=== PATIENT | male | born 1975 | race Caucasian/White ===

== ENCOUNTER 2017-01-02 22:26 | Inpatient (IN) ==
[2017-01-02] MEDS ORDERED: *HR* Ticagrelor 90 MG TABLET PO ONE (22:56)
[2017-01-02] MEDS ORDERED: Aspirin 81 MG TAB.CHEW PO ONE (22:56)
[2017-01-02] MEDS ORDERED: *HR* Heparin 5,000 UNIT/ML VIAL IVP ONE (22:56)
[2017-01-02] MEDS ORDERED: *HR* Heparin 5,000 UNIT/ML VIAL IVP PRN ×2 (22:56)
[2017-01-02] MEDS ORDERED: Heparin 25,000 UNIT/500 ML D5W 25,000 UNIT/500 ML MLS IVC SCH (23:00)
[2017-01-02] MEDS ORDERED: Aspirin 81 MG TAB.CHEW ONE (23:01)
[2017-01-02] MEDS ORDERED: *HR* Ticagrelor 90 MG TABLET ONE (23:01)
[2017-01-02] MEDS ORDERED: *HR* Heparin 5,000 UNIT/ML VIAL ONE (23:01)
[2017-01-02] MEDS ORDERED: 0.9 % Sodium Chloride 1,000 ML ONE ×2 (23:01→23:21)
--- NOTE | 2017-01-02 23:01 | Emergency Department Note ---
Disposition Clinical Impression: ST elevation myocardial infarction (STEMI) Qualifiers: Involved coronary artery: other inferior wall coronary artery Qualified Code(s) : I21.19 - ST elevation (STEMI) myocardial infarction involving other coronary artery of inferior wall Disposition: Admitted As Inpatient Condition: Serious Forms: ED Satisfaction Letter Chest Pain HPI - General Chief Complaint: ED Chest Pain Stated Complaint: CP INTO NECK Time Seen by Provider: 01/02/17 22:56 Source: patient, family Mode of arrival: private vehicle Limitations: no limitations Vital Signs Reviewed: Yes Nursing Notes Reviewed: Yes - History of Present Illness HPI Narrative: 41-year-old male history of hypertension who presents to the ER with a chief complaint of chest pain. Patient reports that he was recently hospitalized at another facility where he had troponins measured serially and was discharged. They report that they were normal. No stress test or Cardiac catheterization at that time. He reports that he has continued to have pain but it worsened today. He describes pain that radiates into his left neck and jaw. He is also felt short of breath and diaphoretic. No history of cardiac disease, stents or heart catheterization in the past. No other complaints. Pt complaint: chest pain Onset (ago): day(s) Duration: intermittent Onset: during rest Pain Location: left chest Severity: moderate Severity scale (1-10): 3 Quality: heaviness Pain Radiation: neck, jaw/teeth Improves with: nothing Worsens with: exertion Associated symptoms: Reports: nausea, diaphoresis, dyspnea. Denies: vomiting Treatments prior to arrival chest pain: none - Related Data On Oral Contraceptives: No Allergies Allergy/AdvReac Type Severity Reaction Status Date / Time No Known Allergies Allergy Verified 01/02/17 22:45 All systems ED: reviewed and negative except as stated. Constitutional: Denies: fever Cardiovascular: Reports: chest pain, dyspnea on exertion Respiratory: Reports: dyspnea. Denies: cough Gastrointestinal: Reports: nausea. Denies: abdominal pain, vomiting Musculoskeletal: Reports: neck pain Chest Pain PMH - Past Medical History Medical history: Reports: no medical history - Social History Smoking Status: Never smoker Alcohol use: Reports: none Drug use: Reports: none Physical Exam - General Limitations: no limitations General appearance: alert, in no apparent distress - Head Head exam: atraumatic, normocephalic, normal inspection - Eye Eye exam: Present: normal appearance, EOMI - ENT ENT exam: normal exam - Neck Neck exam: Present: normal inspection - Chest Chest inspection: Present: normal inspection, symmetric chest wall rise - Cardiovascular Cardiovascular exam: Present: regular rate, normal rhythm, normal heart sounds - Abdominal Exam Abdominal exam: Present: soft, Non-Tender. Absent: tenderness - Extremities Exam Extremities exam: Present: normal inspection, full ROM - Expanded Upper Extremity Exam Shoulder exam: Present: normal inspection, full ROM Arm exam: Present: normal inspection, full ROM Elbow exam: Present: normal inspection, full ROM Forearm/Wrist exam: Present: normal inspection, full ROM Hand exam: Present: normal inspection, full ROM Vascular exam: Normal: radial pulse - Expanded Lower Extremity Exam Hip/Pelvis exam: Present: normal inspection, full ROM Upper leg exam: Present: normal inspection, full ROM Knee exam: Present: normal inspection, full ROM Lower leg exam: Present: normal inspection, full ROM Ankle exam: Present: normal inspection, full ROM Foot/toe exam: Present: normal inspection, full ROM Neurovascular/Tendon exam: Absent: motor deficit, sensory deficit - Neurological Exam Neurological exam: Present: alert - Psychiatric Psychiatric exam: Present: normal affect, normal mood - Skin Skin exam: Present: warm, dry, intact, normal color Course Course Narrative: Patient seen and examined. Vital signs reviewed. STEMI alert was called upon evaluation of his EKG. supervisor [facility] pool has been contacted and will be in to see the patient. We will load him with Brilinta as well as heparin. Vital Signs Temperature 98.0 F 01/02/17 22:42 Pulse Rate 97 01/02/17 22:42 Respiratory Rate 18 01/02/17 22:42 Blood Pressure 151/99 01/02/17 22:42 O2 Sat by Pulse Oximetry 95 01/02/17 22:42 Temperature 98.0 F 01/02/17 22:42 Pulse Rate 93 01/02/17 23:32 Respiratory Rate 18 01/02/17 23:32 Blood Pressure 149/108 01/02/17 23:32 O2 Sat by Pulse Oximetry 97 01/02/17 23:32 Oxygen Delivery Oxygen Delivery Nasal Cannula Chest Pain - MDM Narrative Medical decision making narrative: 41-year-old male presents to the ER due to chest pain. Upon arrival he was made a STEmI alert his findings in the inferior leads. Pain has been going on for a few days. He had a recent hospitalization with negative troponins. Interventional cardiology was contacted and will be in to see the patient. His troponin came back at 2. Patient will go to [facility] for further management. Hemodynamically stable in the emergency department. - Lab Data Lab results reviewed: Yes I reviewed the patient's lab results. Result diagrams: 01/02/17 22:55 01/02/17 22:55 Lab Results 01/02/17 01/02/17 01/02/17 Range/Units 22:55 22:55 22:55 WBC 12.8 H (4.3-11.1) K/mcL RBC 5.21 (4.19-5.50) M/mcL Hgb 16.1 (12.9-16.9) g/dL Hct 47.5 (37.5-50.1) % MCV 91.2 (83.0-100.0) fL MCH 30.9 (28.0-33.3) pg MCHC 33.9 (31.6-35.5) g/dL RDW 12.2 (11.5-14.5) % Plt Count 235 (140-400) K/mcL MPV 10.9 (9.4-12.4) fL Immature Gran % 0.5 (0-4) % Seg Neutrophils % 64.1 % Lymphocytes % 21.5 % Monocytes % 8.2 % Eosinophils % 5.2 % Basophils % 0.5 % Neutrophils # 8.2 (1.6-8.9) K/mcL Lymphocytes # 2.8 (0.6-4.6) K/mcL Monocytes # 1.1 (0.0-1.3) K/mcL Eosinophils # 0.7 H (0.0-0.6) K/mcL Basophils # 0.1 (0.0-0.2) K/mcL PT 10.0 (9.4-12.1) Seconds INR 0.9 APTT 25.3 L (26.0-36.0) Seconds Sodium 140 (136-145) mEq/L Potassium 3.9 (3.5-4.5) mEq/L Chloride 104 (98-109) mEq/L Carbon Dioxide 25 (19-29) mEq/L BUN 19 (8-26) mg/dL Creatinine 1.32 H (0.72-1.25) mg/dL Est GFR ( Amer) > 60 (> 60) Est GFR (Non-Af Amer) 60 (> 60) BUN/Creatinine Ratio 14 (6-26) Glucose 116 H (70-99) mg/dL Calculated Osmolality 293 (280-300) Calcium 9.5 (8.6-10.8) mg/dL Magnesium 2.2 (1.6-2.6) mg/dL Troponin I (0-0.03) ng/mL 01/02/17 Range/Units 22:55 WBC (4.3-11.1) K/mcL RBC (4.19-5.50) M/mcL Hgb (12.9-16.9) g/dL Hct (37.5-50.1) % MCV (83.0-100.0) fL MCH (28.0-33.3) pg MCHC (31.6-35.5) g/dL RDW (11.5-14.5) % Plt Count (140-400) K/mcL MPV (9.4-12.4) fL Immature Gran % (0-4) % Seg Neutrophils % % Lymphocytes % % Monocytes % % Eosinophils % % Basophils % % Neutrophils # (1.6-8.9) K/mcL Lymphocytes # (0.6-4.6) K/mcL Monocytes # (0.0-1.3) K/mcL Eosinophils # (0.0-0.6) K/mcL Basophils # (0.0-0.2) K/mcL PT (9.4-12.1) Seconds INR APTT (26.0-36.0) Seconds Sodium (136-145) mEq/L Potassium (3.5-4.5) mEq/L Chloride (98-109) mEq/L Carbon Dioxide (19-29) mEq/L BUN (8-26) mg/dL Creatinine (0.72-1.25) mg/dL Est GFR ( Amer) (> 60) Est GFR (Non-Af Amer) (> 60) BUN/Creatinine Ratio (6-26) Glucose (70-99) mg/dL Calculated Osmolality (280-300) Calcium (8.6-10.8) mg/dL Magnesium (1.6-2.6) mg/dL Troponin I 2.01 H* (0-0.03) ng/mL - EKG Data EKG attestation: Yes I reviewed and interpreted this EKG. EKG results narrative: EKG demonstrates sinus rhythm with a rate of 85 bpm. Normal axis. VT interval 110 QRS duration 110 QTc 387 they are 1 mm elevations in leads 3 and aVF without discernible reciprocal changes. No ST depressions. No previous EKG for comparison. Heart Score - Score History: Moderately Suspicious EKG: Significant ST-Depression Age: Less than 45 Risk Factors: 1-2 risk factors Troponin: Greater than 3x normal limit HEART Score Total: 6 Critical Care Time Critical Care Time: Yes Total Critical Care Time: 35 Attestation: Critical care performed: Time is exclusive of separately billable procedures. Time includes: direct patient care, patient reassessment, coordination of patient care, interpretation of data (laboratory data, radiology data, and respiratory data), review of patient's medical records, medical consultation and documentation of patient care. Procedures included in critical care time: Procedures excluded from critical care time: Attestation Statement - Attestation Attestation: I, Isac Sears MD, personally evaluated this patient and discussed their management with the resident physician. I reviewed the resident's note and agree with the documented findings, medical decision making, and plan of care. 41-year-old male presents to the emergency department with a complaint of pain in the left side of the neck radiating up into the left jaw and down into the left chest. This pain started 4 days ago and is been intermittent since onset. He was seen at another facility 3 days ago and admitted overnight for serial troponins which were apparently negative. He was discharged from there 2 days ago and reports they really did not tell them anything. He was not started on aspirin. He has no prior cardiac history. He states that the pain has continued after being discharged from the hospital and got worse today. He states he just tried to ignore it but the pain persisted. He has had some intermittent diaphoresis. Some mild intermittent shortness of breath but has a history of asthma. On examination patient is a well-developed well-nourished male in no acute distress. He is alert and oriented 3. There is no cyanosis or diaphoresis. Chest is nontender to palpation. Breath sounds are clear and equal bilaterally. Heart regular rate and rhythm. Abdomen soft and nontender with normal bowel sounds. Pedal edema. EKG shows an acute inferior STEMI with about [address] elevation in leads 3 and aVF. There is mild elevation in lead 2. He also has Q waves. Troponin 2.01. A STEMI alert was called immediately upon reviewing the EKG. Patient received aspirin and Brilinta and heparin. He was taken directly from the emergency department to the cardiac catheter lab.
[2017-01-02 23:05] LABS: Basophils # 0.1 K/mcL (0.0-0.2); Basophils % 0.5 %; Eosinophils # 0.7 K/mcL (0.0-0.6); Eosinophils % 5.2 %; Hematocrit 47.5 % (37.5-50.1); Hemoglobin 16.1 g/dL (12.9-16.9); Immature Granulocytes % 0.5 % (0-4); Lymphocytes # 2.8 K/mcL (0.6-4.6); Lymphocytes % 21.5 %; Mean Corpuscular HGB Conc 33.9 g/dL (31.6-35.5); Mean Corpuscular Hemoglobin 30.9 pg (28.0-33.3); Mean Corpuscular Volume 91.2 fL (83.0-100.0); Mean Platelet Volume 10.9 fL (9.4-12.4); Monocytes # 1.1 K/mcL (0.0-1.3); Monocytes % 8.2 %; Neutrophils # 8.2 K/mcL (1.6-8.9); Platelet Count 235 K/mcL (140-400); Red Blood Count 5.21 M/mcL (4.19-5.50); Red Cell Distribution Width 12.2 % (11.5-14.5); Segmented Neutrophils % 64.1 %
[2017-01-02 23:07] LABS: INR 0.9
[2017-01-02 23:09] LABS: Activated Partial Thrombo Time 25.3 Seconds (26.0-36.0)
[2017-01-02 23:13] LABS: BUN/Creatinine Ratio 14 (6-26); Blood Urea Nitrogen 19 mg/dL (8-26); Calcium 9.5 mg/dL (8.6-10.8); Carbon Dioxide 25 mEq/L (19-29); Chloride 104 mEq/L (98-109); Glucose 116 mg/dL (70-99); Magnesium 2.2 mg/dL (1.6-2.6); Osmolality,Calculated 293 (280-300); Potassium 3.9 mEq/L (3.5-4.5); Sodium 140 mEq/L (136-145); eGFR For African Americans > 60 (> 60); eGFR For Non-African Americans 60 (> 60)
[2017-01-02] MEDS ORDERED: *HR* Heparin 10,000 UNIT/10 ML VIAL ONE (23:21)
[2017-01-02] MEDS ORDERED: Heparin 1,000 UNITS/500 mL NS 500 ML ONE (23:21)
[2017-01-02] MEDS ORDERED: *HR* FentaNYL (PF) 100 MCG/2 ML VIAL ONE (23:25)
[2017-01-02] MEDS ORDERED: *HR* Midazolam HCl 2 MG/2 ML VIAL ONE (23:25)
[2017-01-03] MEDS ORDERED: *HR* Midazolam HCl 2 MG/2 ML VIAL ONE (00:05)
[2017-01-03] MEDS ORDERED: Tirofiban 12.5 MG/250ML 12.5 MG/250 ML BAG ONE (00:08)
[2017-01-03] MEDS: Tirofiban 12.5 MG/250ML 12.5 MG/250 ML BAG IVC SCH ×2 (00:18→10:57)
[2017-01-03] MEDS ORDERED: *HR* Metoprolol 5 MG/5 ML VIAL IVP ONE (00:21)
--- NOTE | 2017-01-03 00:37 | Pre-Sedation Evaluation ---
Pre-sedation evaluation - Pre-sedation checklist Date of procedure: 01/02/17 Procedure: cath and PTCA/stent Recent Vitals: Last Vital Signs Temp 98.0 F 01/02/17 22:42 Pulse 93 01/02/17 23:32 Resp 18 01/02/17 23:32 BP 149/108 01/02/17 23:32 Pulse Ox 97 01/02/17 23:32 H&P (including ROS) documented in medical record: Yes Dietary Status: NPO 6 hours prior to procedure Airway Assessment: Patient can open mouth completely, TMJ function normal Dentition: No loose teeth or bridges Possible difficult airway: No ASA Classification *see protocol: CLASS III-Severe systemic disease Plan of Care: Pt appropriate candidate for procedure/moderate/conscious sedation
--- NOTE | 2017-01-03 00:39 | Cardiology History & Physical ---
Date of Encounter: 01/03/17 Time of Encounter: 23:45 History of Present Illness Chief complaint: STEMI HPI: Mr. Smith is a 41 year old male with inferior wall STEMI Chest pain off and on for last 2-3 days. Was seen at [facility] yesterday and sent hime. Pain intermittent today and recurring and seen here in the ED. Troponin 2.0 and BP 176/106 Past Med Surg Social Fam HX - Past Medical History Medical history: no medical history - Social History Smoking Status: Never smoker Smokeless Tobacco Status: No Alcohol use: none Drug use: none Medications and Allergies Allergies No Known Allergies Allergy (Verified 01/02/17 22:45) All Systems Review: A 10-system review of systems was performed and is negative for pertinent findings except as documented above in the HPI. Physical Examination General: Conversant, No Apparent Distress HEENT: Atraumatic Neck: No JVD Cardiac: Reg Rate and Rhythm, No Murmur Lungs: Normal Breath Sounds Neuro: Alert and responsive Abdomen: Soft Skin: No rashes noted on visualized skin Musculoskeletal: No Chest Wall Tenderness Extremities: No Clubbing, No Cyanosis Results 01/02/17 22:55 01/02/17 22:55 - EKG Interpretation EKG results cardiology: personally reviewed (Inferior wall STEMI)
--- NOTE | 2017-01-03 00:44 | Invasive Diagnostic Lab Proc ---
Name: Luke Smith Date of Study: 01/02/2017 Date: 1975 Ht: 68.0in Medical Record#: [id number] Age: 41 Wt: 222.00lb Gender: Male BSA: 2.14 Order #: [id number] BMI: 33.75 Physicians Procedure Physician: Shiva Callahan MD Referring MD: Referring MD: Staff Name Position Time In Olimpia Hemphill RN Senior Administrative Assistant 11:47 PM Sylvia Milligan RN Monitor 11:47 PM Carlita Stock RT (R) Scrub 11:47 PM Indications Indication STEMI Procedures Performed Procedure PRQ CARD REVASC MT 1 VSL Pre-Procedure Checklist Informed consent is complete signed and on chart. H\\T\\P is on chart. ID band is on and ID verified with patient. Patient NPO for procedure The procedure was described for the patient and questions were answered. ECG is on chart. Plan of Care Patient will tolerate the procedure without complications. Adequate level of comfort will be maintained. Hemodynamics will remain stable Patient will recover from procedure without complications. Respiratory function will be maintained. Cardiac rhythm will remain stable. Patient temperature will be maintained. Patient and/or family have verbalized understanding of the procedure. Patient Education Chief Complaint/Reason for Test: Cardiac Cath Developmental Category: Adult (18-64 years) Developmentally Appropriate for Age: Yes Learning Barriers: None Education Needs: Procedure Education Method: Verbal Information Taught: Cardiac Cath Educational Evaluation: Able to repeat information Intravenous Access Time IV Size Location DC'd Fluid/Drip Rate Units RN 11:46 PM 18g 1 1/4" Patent On Arrival Rt Antecubital 0.9NaCl 50 ml/hr Olimpia Hemphill RN 11:46 PM 18g 1 1/4" Patent On Arrival Rt Antecubital Allergies No Known Allergies Vital Signs Time BP (mmHg) HR (bpm) O2 Sat. RR (bpm) LOC 11:47 PM / % 5 = Fully awake and oriented or at pre-proc level 11:47 PM / % 5 = Fully awake and oriented or at pre-proc level 12:02 AM / % 5 = Fully awake and oriented or at pre-proc level 11:46 PM 141 / 100 100 98 % 14 11:50 PM 156 / 95 97 95 % 15 11:55 PM 144 / 86 95 95 % 13 12:00 AM 144 / 98 92 96 % 17 12:06 AM 152 / 93 96 95 % 16 12:10 AM 153 / 100 92 95 % 20 12:15 AM 156 / 109 101 95 % 12:20 AM 151 / 102 103 97 % 25 12:17 AM / % 5 = Fully awake and oriented or at pre-proc level Procedural Medications Time Medication Dose Units Method Given By 11:47 PM Oxygen 2 L/min nasal cannula Olimpia Hemphill RN 11:48 PM Versed 2 mg Intravenous DecOlimpia bower RN 11:48 PM Fentanyl 50 mcg Intravenous Olimpia Hemphill RN 11:48 PM Lidocaine 2% 15 ml Subcutaneous Shiva Callahan MD 12:05 AM Versed 1 mg Intravenous Olimpia Hemphill RN 12:05 AM Fentanyl 50 mcg Intravenous Olimpia Hemphill RN 12:17 AM Aggrastat Bolus: 50 ml Intravenous DecOlimpia bower RN 12:18 AM Aggrastat 12.5mg/250ml 18 ml Intravenous DecOlimpia bower RN 12:20 AM Heparin 1500 units Intravenous DecOlimpia bower RN 12:21 AM Lopressor 5 mg Intravenous DecOlimpia bower RN ASA Classification: CLASS II- Mild systemic disease (i.e. well-controlled diabetes, hypertension, asthma, cigarette smoking) Padma Score Preprocedure Postprocedure Activity 2- Moves 4 extremities sustained head lift Activity 2- Moves 4 extremities sustained head lift Circulation 2- SBP +/= 20 points of pre-anesthetic level Circulation 2- SBP +/= 20 points of pre-anesthetic level Consciousness 2- Awake and alert oriented x 3 Consciousness 2- Awake and alert oriented x 3 O2 Saturation 2- Able to maintain O2 satruation of 92% on room air O2 Saturation 2- Able to maintain O2 satruation of 92% on room air Respiratory 2- Able to deep breathe and cough well Respiratory 2- Able to deep breathe and cough well Total Score 10 Total Score 10 Contrast Agent: Isovue Diagnostic Contrast: 120 ml Total Contrast: 120 ml Fluoro Dose: 822 mGy Procedure Log Time Note Enter By 11:45 PM Case Start 11:45 PM CathStat 11:45 PM Vitals capture started with the following parameters, Patient=Adult, Interval=5 min, Initial Nhjkqpst=355 mmHg, Deflation Rate=5 mmHg, Cuff placed on Right Arm 11:46 PM GQ=942 bpm, DCJB=061/100 mmhg, SpO2=98.0 %, Resp=14 B/min, Comment=SR 11:47 PM Pt arrived to label rewinder 2 at 23:47 [email or web address] 11:47 PM Olimpia Hemphill RN Position: Senior Administrative Assistant Time in: 23:47 [email or web address] 11:47 PM Sylvia Milligan RN Position: Monitor Time in: :47 [email or web address] 11:47 PM Carlita Stock RT (R) Position: Scrub Time in: :47 [email or web address] 11:47 PM Patient charges- Angio tray pack, Navilyst 3mm J, Pulse Oximetry and ACIST tubing and transducer [email or web address] 11:47 PM Case Delayed No [email or web address] 11:47 PM Hair removed from procedure site in procedure lab using clippers. Bilateral groin prepped with Chloraprep by Sylvia Milligan RN, safety strap applied then patient was draped. Skin intact. [email or web address] 11:47 PM Physician arrived 23:47 [email or web address] 11:47 PM ASA Class CLASS II- Mild systemic disease (i.e. well-controlled diabetes, hypertension, asthma, cigarette smoking) [email or web address] 11:47 PM Dhruv and gini completed [email or web address] 11:47 PM Sign in performed according to hospital policy. [email or web address] 11:47 PM Procedure start 23:47 [email or web address] 11:47 PM Time: 23:47 Oxygen on at 2 L/min per nasal cannula by Olimpia Hemphill RN3 11:47 PM Time: 23:47 Patient comfortable and pain free: Yes [email or web address] 11:47 PM Time: 23:47LOC: 5 = Fully awake and oriented or at pre-proc level [email or web address] 11:47 PM 0/10 pain upon arrival to lab [email or web address] 11:48 PM Time: 23:48 Versed 2 mg Intravenous Given by Olimpia Hemphill RN 11:48 PM Time: 23:48 Fentanyl 50 mcg Intravenous Given by Olimpia Hemphill RN 11:48 PM Clinical Presentation: STEMI or equivalent [email or web address] 11:48 PM Time out performed according to hospital policy [email or web address] 11:48 PM Time: 23:48 15 ml Lidocaine 2% to right groin Subcutaneous Given by Shiva Callahan MD [email or web address] 11:50 PM Recorded ECG: SH=671 Condition=Condition 1 11:50 PM HR=97 bpm, AAFD=750/95 mmhg, SpO2=95 %, Resp=15 B/min 11:53 PM Pressure channel 1 zeroed. 11:55 PM HR=95 bpm, IJWU=563/86 mmhg, SpO2=95.0 %, Resp=13 B/min, Comment=SR 11:56 PM difficulty getting sheath to advance [email or web address] 12:00 AM HR=92 bpm, SIVZ=791/98 mmhg, SpO2=96.0 %, Resp=17 B/min, Comment=SR 12:02 AM .035 Amplatz Super Stiff 260cm guide wire across target lesion- successful. reused? No [email or web address] 12:02 AM Amplatz used for sheath placement [email or web address] 12:02 AM Access obtained by percutaneous puncture. 6Fr 10cm Terumo [place] sheath placed in right Femoral artery. [id number] [email or web address] 12:02 AM Time: 23:47 Patient comfortable and pain free: Yes [email or web address] 12:02 AM Time: 23:47LOC: 5 = Fully awake and oriented or at pre-proc level [email or web address] 12:02 AM pt received 324mg PO ASA, 180mg Brilinta PO, 4000 units IVP Heparin prior to arrival in ed [email or web address] 12:03 AM 5Fr FL 4 catheter inserted over the wire [facility] [email or web address] 12:03 AM 0.035 145cm Navilyst 3mmJ wire [id number] [email or web address] 12:04 AM Recorded Pressure: Ao, HR=96, Condition=Condition 1 (Aorta) Ao 127/109/119 12:04 AM LCA angiography performed in multiple views. [email or web address] 12:05 AM Catheter removed [email or web address] 12:05 AM 5Fr FR 4 [email or web address] 12[facility] AM Time: 00:05 Versed 1 mg Intravenous Given by Olimpia Hemphill RN3 12:05 AM Time: 00:05 Fentanyl 50 mcg Intravenous Given by Olimpia Hemphill RN 12:06 AM RCA angiography performed in multiple views. [email or web address] 12:06 AM Recorded Pressure: Ao, HR=97, Condition=Condition 1 (Aorta) Ao 130/116/124 12:06 AM HR=96 bpm, FDTG=415/93 mmhg, SpO2=95 %, Resp=16 B/min 12:08 AM Catheter removed [email or web address] 12:08 AM 6Fr JR 4 Cordis guide catheter was used to cannulate the PCI vessel successfully. reused? No [email or web address] 12:09 AM .014 [employer] [place] 190cm guide wire across target lesion- successful. reused? No [email or web address] 12:09 AM Inflation device was opened. [email or web address] 12:10 AM HR=92 bpm, JIHJ=983/100 mmhg, SpO2=95.0 %, Resp=20 B/min, Comment=SR 12:11 AM 3.0 mm x 12 mm Emerge Monorail balloon across target lesion- successful. reused? No [email or web address] 12:12 AM Balloon inflated @ 15 isma for 15 seconds [email or web address] 12:12 AM Recorded Pressure: Ao, HR=97, Condition=Condition 1 (Aorta) Ao 150/124/138 12:13 AM Balloon inflated @ 15 isma for 9 seconds [email or web address] 12:14 AM Balloon catheter removed intact. [email or web address] 12:15 AM BV=346 bpm, XYQB=720/109 mmhg, SpO2=95.0 %, Comment=SR 12:17 AM 3.5mm x 20mm Synergy bio-absorable stent across target lesion- successful Lot #[id number] [email or web address] 12:17 AM Time: 00:17 Aggrastat Bolus: 50 ml Intravenous Given by Olimpia Hemphill RN Mann pump [email or web address] 12:17 AM Time: 00:02 Patient comfortable and pain free: Yes [email or web address] 12:17 AM Time: 00:02LOC: 5 = Fully awake and oriented or at pre-proc level [email or web address] 12:18 AM Time: 00:18 Aggrastat 12.5mg/250ml 18 ml Intravenous Given by Olimpia Hemphill RN Mann pump [email or web address] 12:18 AM Stent deployed @ 17 isma for 30 seconds [email or web address] 12:19 AM Stent delivery system removed intact. [email or web address] 12:19 AM Guide catheter removed intact. [email or web address] 12:19 AM 5Fr Pigtail catheter inserted over the wire DNC [email or web address] 12:19 AM Catheter selectively placed in left ventricle [email or web address] 12:20 AM Recorded Pressure: LV, GD=508, Condition=Condition 1 (Left Ventricle) LV 158/2/17 12:20 AM Time: 00:20 Heparin 1500 units Intravenous Given by Olimpia Hepmhill RN Mann pump [email or web address] 12:20 AM Recorded Pressure: LV, Ao, BY=236, Condition=Condition 1 (Left Ventricle) LV 157/8/24, (Aorta) Ao 134/95/114 12:20 AM Bolus angiogram of left Ventricle complete: 10 ml/sec for a total of 30 mls [email or web address] 12:20 AM ST=096 bpm, DHYV=052/102 mmhg, SpO2=97 %, Resp=25 B/min 12:21 AM Time: 00:21 Lopressor 5 mg Intravenous Given by Olimpia Hemphill RN [email or web address] 12:23 AM Catheter removed [email or web address] 12:23 AM Wire removed [email or web address] 12:23 AM Bolus angiogram of right Femoral complete: 4 ml/sec for a total of 7 mls [email or web address] 12:23 AM Coronary Dominance: right [email or web address] 12:24 AM Procedure completed at 00:24 [email or web address] 12:24 AM Sign out completed: Radiation Dose 822.1 mGy Fluoro Time: 4.3 Isovue 370 - 200ml contrast 120 ml given by Shiva Callahan MD. Complications: NoneCardiac Rehab Consult needed: YesConfirmed administered medications: Yes [email or web address] 12:24 AM Isovue 370 - 200ml,1 Bottle(s) used. [email or web address] 12:27 AM Sheath left in place to be pulled on floor/holding areaV+Pad [email or web address] 12:27 AM Post ECG NSR [email or web address] 12:27 AM Post Blood Pressure 155/102 [email or web address] 12:27 AM 00:27 Post Pulses Bilateral DP \\T\\ PT 1+ [email or web address] 12:27 AM Information taught Cardiac Cath and PCI [email or web address] 12:28 AM Education needs Procedure, Plan of Care, and Responsibilities of Patient in Care [email or web address] 12:28 AM Learning barriers :None [email or web address] 12:28 AM Education Methods Verbal [email or web address] 12:28 AM Education evaluation Able to repeat information [email or web address] 12:28 AM Site status No bleeding/hematoma - Rt Groin as reported by Carlita Stock RT (R) at 00:28 [email or web address] 12:28 AM Opsite applied [email or web address] 12:29 AM Report given to Lin KELLOGG Pt taken to ICU Room #10. 00:29 [email or web address] 12:33 AM Time: 00:17LOC: 5 = Fully awake and oriented or at pre-proc level [email or web address] 12:33 AM Time: 00:17 Patient comfortable and pain free: [email or web address] 12:33 AM Plavix, Effient or Brilinta given Yes [email or web address] 12:33 AM Delay to floor No [email or web address] 12:33 AM Family placed in consult room. [email or web address] 12:33 AM Patient out of room: 00:33 [email or web address] 12:34 AM Lesion found in Proximal RCA. Pre Stenosis: 99 Pre COCO Flow: [email or web address] 12:34 AM Right Coronary, Right Posterior Descending Arteries with Right Posterolateral and Acute Marginal branches with 99 % stenosis. If graft is supplying this area, 0 % stenosis [email or web address] Complications Complication None Hemodynamics Pressures Site Systolic/A Wave Diastolic/V Wave Mean AO 127 109 119 AO 130 116 124 AO 150 124 138 LV 158 2 17 LV 157 8 24 AO 134 95 114 Post Procedure Information Blood Pressure: 155/102 mmHg Rhythm: NSR Post procedural instructions were given Closure Device Time Device Success/Fail Site Checks Time Location Status Staff Sheath In? Note 12:28 AM Rt Groin No bleeding/hematoma Carlita Stock RT (R) Pulses Time Site Pre-Procedure Post-Procedure Note 01/02/2017 11:46:00 PM Bilateral DP \\T\\ PT 1+ 01/02/2017 11:46:00 PM Bilateral radial 2+ 12:27:00 AM Bilateral DP \\T\\ PT 1+ Updated by Sylvia Milligan RN on 01/03/2017 12:37:06 AM electronically signed on 01/03/2017 12:38:05 AM with status of Final
--- NOTE | 2017-01-03 00:45 | Procedure Note ---
Date of procedure: 01/02/17 Pre-op diagnosis: STEMI Post-op diagnosis: same Anesthesia: local, IV sedation Surgeon: Shiva Callahan Estimated blood loss (cc): 20 Pathology: none sent Condition: stable Disposition: ICU (Had occlusion the RCA proximal. PTCA/stent with Brilenta and aggrastat and heparin. IV metropolol)
--- NOTE | 2017-01-03 01:00 | Invasive Diagnostic Lab ---
Name: Luke Smith Date of Study: 01/02/2017 Date: 1975 Ht: 172.7 cm /68.0 in Medical Record#: [id number] Age: 41 Wt: 100.7 kg / 222.00 lb Account/Order#: [id number] Gender: Male BSA: 2.14 Order #: [id number] Fluoro Dose: 822 mGy BMI: 33.75 Procedure Physician: Shiva Callahan MD Referring MD: Referring MD: Procedures Performed: PCI of Acute [place] Indications: STEMI Impressions: There is severe one vessel coronary artery disease. The left ventricle is normal and has normal contractility EF 55% Recommendations: Plavix (Clopidogrel) 75 mg PO Daily. Optimal medical therapy of patient's disease. Aggressive risk factor modification. History/Risk Factors: asthma Procedure Access obtained in the right Femoral artery by percutaneous puncture Patient had successful PTCA/Drug-Eluting Stent placement in the proximal RCA. Complications: None Contrast: Isovue 120ml Hemodynamics: Pressures Site Systolic/ A Wave Diastolic/ V Wave End Diastolic/ Mean HR AO 127 109 119 96 AO 130 116 124 97 AO 150 124 138 97 LV 158 2 17 103 LV 157 8 24 104 AO 134 95 114 107 LV Ventriculography Ejection Method: LV Gram Ejection Fraction: 55% Wall Motion: HUNTER Anterobasal Normal Anterolateral Normal Apical: Normal Inferoapical Normal Inferobasal Normal Coronary Dominance: right Lesion Findings/Interventions * Left Main Coronary Artery The LMCA is angiographically free of disease. * Left Anterior Descending The LAD is angiographically free of disease. The 1st Diagonal is angiographically free of disease. * Circumflex The Circumflex is angiographically free of disease. The 1st Marginal is angiographically free of disease. * Right Coronary Artery There is a 20 mm long, 99% stenosis in the Proximal RCA. The lesion has no thrombus present. An intervention was performed on the Proximal RCA with a final stenosis of 0%. There were no lesion complications. The final COCO flow was 3. Interventional Device(s) Vessel Segment Type Name Diameter (mm) Length (mm) Proximal RCA Balloon Emerge Monorail 3 12 Proximal RCA Drug Eluting Stent Synergy 3.5 20 Updated by Sylvia Milligan RN on 01/03/2017 12:36:43 AM Shiva Callahan MD, FACC electronically signed on 01/03/2017 12:53:18 AM with status of Final
[2017-01-03 04:32] LABS: Basophils % 0.4 %; Eosinophils # 0.5 K/mcL (0.0-0.6); Eosinophils % 5.3 %; Hematocrit 42.9 % (37.5-50.1); Hemoglobin 14.7 g/dL (12.9-16.9); Immature Granulocytes % 0.6 % (0-4); Lymphocytes # 2.3 K/mcL (0.6-4.6); Lymphocytes % 22.5 %; Mean Corpuscular HGB Conc 34.3 g/dL (31.6-35.5); Mean Corpuscular Volume 90.5 fL (83.0-100.0); Mean Platelet Volume 10.8 fL (9.4-12.4); Monocytes # 0.7 K/mcL (0.0-1.3); Monocytes % 6.8 %; Neutrophils # 6.5 K/mcL (1.6-8.9); Platelet Count 205 K/mcL (140-400); Red Blood Count 4.74 M/mcL (4.19-5.50); Red Cell Distribution Width 12.1 % (11.5-14.5); Segmented Neutrophils % 64.4 %
[2017-01-03 04:43] LABS: BUN/Creatinine Ratio 19 (6-26); Blood Urea Nitrogen 17 mg/dL (8-26); Calcium 8.9 mg/dL (8.6-10.8); Carbon Dioxide 22 mEq/L (19-29); Chloride 105 mEq/L (98-109); Glucose 133 mg/dL (70-99); Osmolality,Calculated 289 (280-300); Potassium 3.9 mEq/L (3.5-4.5); Sodium 138 mEq/L (136-145); eGFR For African Americans > 60 (> 60); eGFR For Non-African Americans > 60 (> 60)
[2017-01-03] MEDS: Acetaminophen 325 MG TABLET PO PRN ×3 (08:08→19:44)
[2017-01-03] MEDS ORDERED: Metoprolol XL (24 HR) Succ 25 MG TAB.ER.24H PO SCH (09:00)
[2017-01-03] MEDS: *HR* Ticagrelor 90 MG TABLET PO SCH ×2 (09:15→19:44)
[2017-01-03] MEDS: Aspirin 81 MG TAB.CHEW PO SCH (09:15)
--- NOTE | 2017-01-03 10:16 | Electrocardiograph Report ---
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
--- NOTE | 2017-01-03 10:16 | Electrocardiograph Report ---
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
--- NOTE | 2017-01-03 10:18 | Electrocardiograph Report ---
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
[2017-01-03] MEDS: *HR* Heparin 5,000 UNIT/ML VIAL SQ SCH ×2 (13:33→17:38)
[2017-01-03] MEDS ORDERED: Nitroglycerin 0.4 MG TAB.SUBL SL PRN (14:01)
[2017-01-04] MEDS: *HR* Heparin 5,000 UNIT/ML VIAL SQ SCH (06:27)
[2017-01-04] MEDS: Aspirin 81 MG TAB.CHEW PO SCH (07:31)
[2017-01-04] MEDS: *HR* Ticagrelor 90 MG TABLET PO SCH (07:32)
[2017-01-04] MEDS ORDERED: Metoprolol XL (24 HR) Succ 50 MG TAB.ER.24H PO SCH (09:00)
--- NOTE | 2017-01-04 10:25 | Discharge Summary ---
Date of Encounter: 01/04/17 Time of Encounter: 10:00 - Discharge Diagnosis (1) ST elevation myocardial infarction (STEMI) Priority: Primary Status: Acute Comments: s/p PCI to RCA Qualifiers: Involved coronary artery: right coronary artery Qualified Code(s): I21.11 - ST elevation (STEMI) myocardial infarction involving right coronary artery (2) Essential (primary) hypertension Priority: Secondary Status: Chronic - Discharge Medications Prescriptions: Nitroglycerin 0.4 mg SL Q5MIN PRN #30 tab.subl PRN Reason: Chest Pain Aspirin 81 mg PO DAILY #30 tab.chew Atorvastatin [Lipitor] 80 mg PO HS #30 tablet Lisinopril [Zestril] 5 mg PO DAILY #30 tablet Metoprolol XL (24 HR) Succ [Toprol Xl] 50 mg PO DAILY #30 tab.er.24h Ticagrelor [Brilinta] 90 mg PO BID #60 tablet Home Medications: Fluticasone/Salmeterol [Advair 250-50 Diskus] 1 puff IH BID 01/03/17 [History] Venlafaxine HCl [Venlafaxine HCl ER] 150 mg PO DAILY 01/03/17 [History] Aspirin 81 mg PO DAILY #30 tab.chew 01/04/17 [Rx] Atorvastatin [Lipitor] 80 mg PO HS #30 tablet 01/04/17 [Rx] Lisinopril [Zestril] 5 mg PO DAILY #30 tablet 01/04/17 [Rx] Metoprolol XL (24 HR) Succ [Toprol Xl] 50 mg PO DAILY #30 tab.er.24h 01/04/17 [ Rx] Nitroglycerin 0.4 mg SL Q5MIN PRN #30 tab.subl 01/04/17 [Rx] Ticagrelor [Brilinta] 90 mg PO BID #60 tablet 01/04/17 [Rx] Allergies/Adverse Reactions: Allergies No Known Allergies Allergy (Verified 01/02/17 22:45) Date of admission: 01/03/17 13:42 Primary care physician: Eli Jacques Discharging clinician: Willa Suarez Anticipated date of discharge: 01/04/17 - Patient Status Disposition: Home, Self-Care Condition: Good Functional capacity at discharge: independent ambulation Overall status at discharge: patient is progressing back to baseline - Discharge Instructions Instructions: Myocardial Infarction (DC) Follow Up With: Cardiology [facility] [Provider Group] (Office will call with appt date and time. Follow-up within 5-7 days. ) Eli Stern MD [Primary Care Provider] - 01/21/17 10:00 am Additional Instructions: RISK FACTORS: STOP SMOKING: If you smoke, STOP. Smoking or tobacco use significantly increases your risk of heart disease because nicotine causes the arteries to narrow or constrict. It also causes fats to stick to the artery. Your chances of having a heart attack are greatly increased if you continue to smoke. For more information, call the education line for smoking cessation 7-901-LPZVAED EAT A LOW FAT/CHOLESTEROL/SODIUM DIET: This diet may help reduce your chances of having a heart attack. LIFTING: Avoid lifting anything more than 10 pounds for 5-7 days Prior to straining, laughing, sneezing and/or coughing, apply manual pressure directly over insertion site. ACTIVITY: You may walk or climb stairs as tolerated You can resume sexual activity as tolerated In general, you are encouraged to engage in a minimum of 30 minutes or more of moderate intensity physical activity, such as brisk walking, daily or at least 3 -4 times weekly BATHING Do not submerge the site into water (bath tub, hot tub, swimming pool) for 1 week. This can be a source for infection into the blood stream. You may shower after 24 hours SITE CARE: After 24 hours, you may remove the dressing and leave the site open to air. Keep the site clean and dry. Clean gently and pat dry. You can expect bruising and tenderness that gradually resolve within a week or two. Return to work as instructed per your physician Resume driving as instructed per physician Keep all scheduled follow up appointments Resume medications as instructed IMPORTANT: If prescribed a Platelet Aggregation Inhibitor such as, Plavix, Brilinta or Effient: Duration of therapy is minimum one year These medications are often used in combination with Aspirin in prevention of future heart attacks Never discontinue unless consult with your [employer] STROKE (CVA) Risk factors for a stroke are: Age, cigarette smoking, diabetes, excessive alcohol consumption, family history, high blood pressure, overweight, physical inactivity, prior stroke, heart attack, diagnosis of carotid artery stenosis or other artery disease. Warning signs: Sudden numbness or weakness of the face, arm or leg; especially on one side of the body, sudden confusion, trouble speaking or understanding, sudden trouble seeing in one or both eyes, sudden trouble walking, dizziness, loss of balance or coordination, sudden severe headache with no cause. Call 911 or go to the Emergency Room. CONGESTIVE HEART FAILURE: If you have been diagnosed with Congestive Heart Failure (CHF) and your symptoms return, make an appointment with your physician Weigh yourself daily. Notify your physician if you have a weight gain of two or more pounds in one day or five or more pounds in one week. If you experience any difficulty breathing, please call 911 BLEEDING: Although the risk of bleeding is minimal, it can happen. If you have any bleeding from the site, apply firm pressure above the puncture site for 10-15 minutes. If the bleeding does not stop, continue manual pressure and call 911 Contact your physician if: You develop a fever greater than 101 degrees Fahrenheit Your site becomes reddened or has any drainage You have an increase in pain or burning at the site or if a large knot forms at the site. If you experience chest pain, shortness of breath, dizziness, or extreme tiredness, stop the activity and rest. Please notify your physicians office if you experience any of these symptoms and they are not relieved by rest please call 911! - Diet and Activity Activity: increase activity as tolerated (per post PCI guidelines/education), return to work once cleared by your PCP/specialist Diet: low fat, low cholesterol, low salt diet - Hospital Course Hospital course: Mr. Smith is a 41 year old male who presented to [facility] with nearly 1 week history of GERD like symptoms associated left neck/shoulder discomfort; he was found to have an inferior STEMI and was emergently taken to the energy systems laboratory director s/p PCI to RCA. He was kept x2 nights for observation and denies any recurrent chest pain. Patient has been up and ambulating in hallway/room without symptoms. TTE demonstrated preserved LVEF. Labs, vitals, and telemetry have been stable. Blood pressure continues to be mildly elevated, ACEi was added to home medication regimen. He was recommended to keep BP/HR log and bring to follow-up. Post PCI education including care of site and activity restrictions were discussed at length. Emphasized the importance of uninterrupted DAPT (asa + brilinta) for at least 1 year. 30 day supply of Brilinta provided at discharge. Discharge medications include: asa, statin, betablocker, brilinta, ACEi, and prn NTG. Risk factor modification emphasized. Recommend LP and LFTs in the outpatient study. He will follow-up with [facility] and PCP within 5-7 days. All questions and concerns were addressed prior to discharge, he is being prepped for discharge to home in stable condition. The patient was discussed and reviewed with Dr. Varun Townsend who agrees with plan as stated above. - Time Spent with Patient Total time spent providing and/or coordinating discharge services: 30 minutes Greater than 30 minutes Specific discharge activities: Per post PCI guidelines--please provide written copy. No heavy lifting >5 pounds for 1 week. No driving for 1 week. Keep cath site clean and dry until healed. Do not return to work until seen by Cardiology at follow-up. Avoid strenuous exertion/activity until seen by Cardiology at follow-up. Physical Examination Vital Signs, Last 4 Hours Temp Pulse Resp BP Pulse Ox 01/04/17 09:00 82 14 121/67 94 01/04/17 08:00 140/99 01/04/17 07:40 97.8 F 01/04/17 07:30 80 01/04/17 07:00 90 14 154/97 97 General: Conversant, No Apparent Distress HEENT: Atraumatic, Normocephaly, Mucus Membranes Moist Cardiac: Reg Rate and Rhythm, Normal S1 and S2 Lungs: Normal Breath Sounds Neuro: Alert and responsive Abdomen: Soft Skin: No rashes noted on visualized skin Musculoskeletal: No Chest Wall Tenderness Extremities: No Edema, Normal Pulses Other: right groin: dressing removed, mild-moderate amout of ecchymosis at site, site soft, no hematoma. +2 DP/PT pulses bilaterally
--- NOTE | 2017-01-06 10:33 | Invasive Diagnostic Lab Proc ---
Name: Luke Smith Date of Study: 01/02/2017 Date: 1975 Ht: 68.0in Medical Record#: [id number] Age: 41 Wt: 222.00lb Gender: Male BSA: 2.14 Order #: [id number] BMI: 33.75 Physicians Procedure Physician: Shiva Callahan MD Referring MD: Referring MD: Staff Name Position Time In Olimpia Hemphill RN Incident Response Manager 11:47 PM Sylvia Milligan RN Monitor 11:47 PM Carlita Stock RT (R) Scrub 11:47 PM Indications Indication STEMI Procedures Performed Procedure PRQ CARD REVASC WI 1 VSL MOD SED OTH PHYS/QHP 5/>YRS MOD SED OTHER PHYS/QHP EA LEFT HEART CATH Pre-Procedure Checklist Informed consent is complete signed and on chart. H\\T\\P is on chart. ID band is on and ID verified with patient. Patient NPO for procedure The procedure was described for the patient and questions were answered. ECG is on chart. Plan of Care Patient will tolerate the procedure without complications. Adequate level of comfort will be maintained. Hemodynamics will remain stable Patient will recover from procedure without complications. Respiratory function will be maintained. Cardiac rhythm will remain stable. Patient temperature will be maintained. Patient and/or family have verbalized understanding of the procedure. Patient Education Chief Complaint/Reason for Test: Cardiac Cath Developmental Category: Adult (18-64 years) Developmentally Appropriate for Age: Yes Learning Barriers: None Education Needs: Procedure Education Method: Verbal Information Taught: Cardiac Cath Educational Evaluation: Able to repeat information Intravenous Access Time IV Size Location DC'd Fluid/Drip Rate Units RN 11:46 PM 18g 1 14" Patent On Arrival Rt Antecubital 0.9NaCl 50 ml/hr Olimpia Hemhpill RN 11:46 PM 18g 1 1/4" Patent On Arrival Rt Antecubital Allergies No Known Allergies Vital Signs Time BP (mmHg) HR (bpm) O2 Sat. RR (bpm) LOC 11:47 PM / % 5 = Fully awake and oriented or at pre-proc level 11:47 PM / % 5 = Fully awake and oriented or at pre-proc level 12:02 AM / % 5 = Fully awake and oriented or at pre-proc level 11:46 PM 141 / 100 100 98 % 14 11:50 PM 156 / 95 97 95 % 15 11:55 PM 144 / 86 95 95 % 13 12:00 AM 144 / 98 92 96 % 17 12:06 AM 152 / 93 96 95 % 16 12:10 AM 153 / 100 92 95 % 20 12:15 AM 156 / 109 101 95 % 12:20 AM 151 / 102 103 97 % 25 12:17 AM / % 5 = Fully awake and oriented or at pre-proc level Procedural Medications Time Medication Dose Units Method Given By 11:47 PM Oxygen 2 L/min nasal cannula Olimpia Hemphill RN 11:48 PM Versed 2 mg Intravenous DecOlimpia bower RN 11:48 PM Fentanyl 50 mcg Intravenous DecOlimpia bower RN 11:48 PM Lidocaine 2% 15 ml Subcutaneous Shiva Callahan MD 12:05 AM Versed 1 mg Intravenous DecOlimpia bower RN 12:05 AM Fentanyl 50 mcg Intravenous DecOlimpia bower RN 12:17 AM Aggrastat Bolus: 50 ml Intravenous DecOlimpia bower RN 12:18 AM Aggrastat 12.5mg/250ml 18 ml Intravenous DeckOlimpia RN 12:20 AM Heparin 1500 units Intravenous DecOlimpia bower RN 12:21 AM Lopressor 5 mg Intravenous DecOlimpia bower RN ASA Classification: CLASS II- Mild systemic disease (i.e. well-controlled diabetes, hypertension, asthma, cigarette smoking) Padma Score Preprocedure Postprocedure Activity 2- Moves 4 extremities sustained head lift Activity 2- Moves 4 extremities sustained head lift Circulation 2- SBP +/= 20 points of pre-anesthetic level Circulation 2- SBP +/= 20 points of pre-anesthetic level Consciousness 2- Awake and alert oriented x 3 Consciousness 2- Awake and alert oriented x 3 O2 Saturation 2- Able to maintain O2 satruation of 92% on room air O2 Saturation 2- Able to maintain O2 satruation of 92% on room air Respiratory 2- Able to deep breathe and cough well Respiratory 2- Able to deep breathe and cough well Total Score 10 Total Score 10 Contrast Agent: Isovue Diagnostic Contrast: 120 ml Total Contrast: 120 ml Fluoro Dose: 822 mGy Procedure Log Time Note Enter By 11:45 PM Case Start 11:45 PM CathStat 11:45 PM Vitals capture started with the following parameters, Patient=Adult, Interval=5 min, Initial Kpodogsi=317 mmHg, Deflation Rate=5 mmHg, Cuff placed on Right Arm 11:46 PM HU=786 bpm, LDCF=727/100 mmhg, SpO2=98.0 %, Resp=14 B/min, Comment=SR 11:47 PM Pt arrived to medical laboratory technical officer 2 at 23:47 [email or web address] 11:47 PM Olimpia Hemphill RN Position: Incident Response Manager Time in: 23:47 [email or web address] 11:47 PM Sylvia Milligan RN Position: Monitor Time in: 23:47 [email or web address] 11:47 PM Carlita Stock RT (R) Position: Scrub Time in: 23:47 [email or web address] 11:47 PM Patient charges- Angio tray pack, Navilyst 3mm J, Pulse Oximetry and ACIST tubing and transducer [email or web address] 11:47 PM Case Delayed No [email or web address] 11:47 PM Hair removed from procedure site in procedure lab using clippers. Bilateral groin prepped with Chloraprep by Sylvia Milligan RN, safety strap applied then patient was draped. Skin intact. [email or web address] 11:47 PM Physician arrived 23:47 [email or web address] 11:47 PM ASA Class CLASS II- Mild systemic disease (i.e. well-controlled diabetes, hypertension, asthma, cigarette smoking) [email or web address] 11:47 PM Shanita completed [email or web address] 11:47 PM Sign in performed according to hospital policy. [email or web address] 11:47 PM Procedure start 23:47 [email or web address] 11:47 PM Time: 23:47 Oxygen on at 2 L/min per nasal cannula by Olimpia Hemphill RN 11:47 PM Time: 23:47 Patient comfortable and pain free: Yes [email or web address] 11:47 PM Time: 23:47LOC: 5 = Fully awake and oriented or at pre-proc level [email or web address] 11:47 PM 0/10 pain upon arrival to lab [email or web address] 11:48 PM Time: 23:48 Versed 2 mg Intravenous Given by Olimpia Hemphill RN 11:48 PM Time: 23:48 Fentanyl 50 mcg Intravenous Given by Olimpia Hemphill RN 11:48 PM Clinical Presentation: STEMI or equivalent [email or web address] 11:48 PM Time out performed according to hospital policy [email or web address] 11:48 PM Time: 23:48 15 ml Lidocaine 2% to right groin Subcutaneous Given by Shiva Callahan MD [email or web address] 11:49 PM access obtained in right femoral artery with wire. unable to advance sheath. multiple sheaths used to obtain access. Vasodilator kit used and access obtained 0002 [email or web address] 11:50 PM Recorded ECG: EV=212 Condition=Condition 1 11:50 PM HR=97 bpm, FULM=559/95 mmhg, SpO2=95 %, Resp=15 B/min 11:53 PM Pressure channel 1 zeroed. 11:55 PM HR=95 bpm, BLWB=738/86 mmhg, SpO2=95.0 %, Resp=13 B/min, Comment=SR 11:56 PM difficulty getting sheath to advance [email or web address] 12:00 AM HR=92 bpm, JEWO=193/98 mmhg, SpO2=96.0 %, Resp=17 B/min, Comment=SR 12:02 AM .035 Amplatz Super Stiff 260cm guide wire across target lesion- successful. reused? No [email or web address] 12:02 AM Amplatz used for sheath placement [email or web address] 12:02 AM Access obtained by percutaneous puncture. 6Fr 10cm Terumo [place] sheath placed in right Femoral artery. [id number] [email or web address] 12:02 AM Time: 23:47 Patient comfortable and pain free: Yes [email or web address] 12:02 AM Time: 23:47LOC: 5 = Fully awake and oriented or at pre-proc level [email or web address] 12:02 AM pt received 324mg PO ASA, 180mg Brilinta PO, 4000 units IVP Heparin prior to arrival in ed [email or web address] 12:03 AM 5Fr FL 4 catheter inserted over the wire [facility] [email or web address] 12:03 AM 0.035 145cm Navilyst 3mmJ wire [id number] [email or web address] 12:04 AM Recorded Pressure: Ao, HR=96, Condition=Condition 1 (Aorta) Ao 127/109/119 12:04 AM LCA angiography performed in multiple views. [email or web address] 12:05 AM Catheter removed [email or web address] 12:05 AM 5Fr FR 4 [email or web address] 12[facility] AM Time: 00:05 Versed 1 mg Intravenous Given by Olimpia Hemphill RN [email or web address] 12:05 AM Time: 00:05 Fentanyl 50 mcg Intravenous Given by Olimpia Hemphill RN [email or web address] 12:06 AM RCA angiography performed in multiple views. [email or web address] 12:06 AM Recorded Pressure: Ao, HR=97, Condition=Condition 1 (Aorta) Ao 130/116/124 12:06 AM HR=96 bpm, UQQY=909/93 mmhg, SpO2=95 %, Resp=16 B/min 12:08 AM Catheter removed [email or web address] 12:08 AM 6Fr JR 4 Cordis guide catheter was used to cannulate the PCI vessel successfully. reused? No [email or web address] 12:09 AM .014 [employer] [place] 190cm guide wire across target lesion- successful. reused? No [email or web address] 12:09 AM Inflation device was opened. [email or web address] 12:10 AM HR=92 bpm, MSUQ=422/100 mmhg, SpO2=95.0 %, Resp=20 B/min, Comment=SR 12:11 AM 3.0 mm x 12 mm Emerge Monorail balloon across target lesion- successful. reused? No [email or web address] 12:12 AM Balloon inflated @ 15 isma for 15 seconds [email or web address] 12:12 AM Recorded Pressure: Ao, HR=97, Condition=Condition 1 (Aorta) Ao 150/124/138 12:13 AM Balloon inflated @ 15 isma for 9 seconds [email or web address] 12:14 AM Balloon catheter removed intact. [email or web address] 12:15 AM MK=673 bpm, RMAF=505/109 mmhg, SpO2=95.0 %, Comment=SR 12:17 AM 3.5mm x 20mm Synergy bio-absorable stent across target lesion- successful Lot #[id number] [email or web address] 12:17 AM Time: 00:17 Aggrastat Bolus: 50 ml Intravenous Given by Olimpia Hemphill RN Mann pump [email or web address] 12:17 AM Time: 00:02 Patient comfortable and pain free: Yes [email or web address] 12:17 AM Time: 00:02LOC: 5 = Fully awake and oriented or at pre-proc level [email or web address] 12:18 AM Time: 00:18 Aggrastat 12.5mg/250ml 18 ml Intravenous Given by Olimpia Hemphill RN Mann pump [email or web address] 12:18 AM Stent deployed @ 17 isma for 30 seconds [email or web address] 12:19 AM Stent delivery system removed intact. [email or web address] 12:19 AM Guide catheter removed intact. [email or web address] 12:19 AM 5Fr Pigtail catheter inserted over the wire DNC [email or web address] 12:19 AM Catheter selectively placed in left ventricle [email or web address] 12:20 AM Recorded Pressure: LV, US=961, Condition=Condition 1 (Left Ventricle) LV 158/2/17 12:20 AM Time: 00:20 Heparin 1500 units Intravenous Given by Olimpia Hemphill RN Mann pump [email or web address] 12:20 AM Recorded Pressure: LV, Ao, TB=396, Condition=Condition 1 (Left Ventricle) LV 157/8/24, (Aorta) Ao 134/95/114 12:20 AM Bolus angiogram of left Ventricle complete: 10 ml/sec for a total of 30 mls [email or web address] 12:20 AM VD=204 bpm, QJHR=921/102 mmhg, SpO2=97 %, Resp=25 B/min 12:21 AM Time: 00:21 Lopressor 5 mg Intravenous Given by Olimpia Hemphill RN [email or web address] 12:23 AM Catheter removed [email or web address] 12:23 AM Wire removed [email or web address] 12:23 AM Bolus angiogram of right Femoral complete: 4 ml/sec for a total of 7 mls [email or web address] 12:23 AM Coronary Dominance: right [email or web address] 12:24 AM Procedure completed at 00:24 [email or web address] 12:24 AM Sign out completed: Radiation Dose 822.1 mGy Fluoro Time: 4.3 Isovue 370 - 200ml contrast 120 ml given by Shiva Callahan MD. Complications: NoneCardiac Rehab Consult needed: YesConfirmed administered medications: Yes [email or web address] 12:24 AM Isovue 370 - 200ml,1 Bottle(s) used. [email or web address] 12:27 AM Sheath left in place to be pulled on floor/holding areaV+Pad [email or web address] 12:27 AM Post ECG NSR [email or web address] 12:27 AM Post Blood Pressure 155/102 [email or web address] 12:27 AM 00:27 Post Pulses Bilateral DP \\T\\ PT 1+ [email or web address] 12:27 AM Information taught Cardiac Cath and PCI [email or web address] 12:28 AM Education needs Procedure, Plan of Care, and Responsibilities of Patient in Care [email or web address] 12:28 AM Learning barriers :None [email or web address] 12:28 AM Education Methods Verbal [email or web address] 12:28 AM Education evaluation Able to repeat information [email or web address] 12:28 AM Site status No bleeding/hematoma - Rt Groin as reported by Carlita Stock RT (R) at 00:28 [email or web address] 12:28 AM Opsite applied [email or web address] 12:29 AM Report given to Lin KELLOGG Pt taken to ICU Room #10. 00:29 [email or web address] 12:33 AM Time: 00:17LOC: 5 = Fully awake and oriented or at pre-proc level [email or web address] 12:33 AM Time: 00:17 Patient comfortable and pain free: [email or web address] 12:33 AM Plavix, Effient or Brilinta given Yes [email or web address] 12:33 AM Delay to floor No [email or web address] 12:33 AM Family placed in consult room. [email or web address] 12:33 AM Patient out of room: 00:33 [email or web address] 12:34 AM Lesion found in Proximal RCA. Pre Stenosis: 99 Pre COCO Flow: [email or web address] 12:34 AM Right Coronary, Right Posterior Descending Arteries with Right Posterolateral and Acute Marginal branches with 99 % stenosis. If graft is supplying this area, 0 % stenosis [email or web address] Equipment Used Size Length Diameter Item Category Angio tray pack Other Terumo [place] sheath Glidewire wire Terumo [place] sheath Navilyst 3mmJ wire Runway Guide catheter Glidewire wire Inflation kit Other Emerge PTCA Dilatation Catheter Monorail Balloon Promus Element Plus Rx Drug Eluting Stent Mann pump Other Isovue 370- 200ml Contrast V+Pad Patch Complications Complication None Hemodynamics Pressures Site Systolic/A Wave Diastolic/V Wave Mean AO 127 109 119 AO 130 116 124 AO 150 124 138 LV 158 2 17 LV 157 8 24 AO 134 95 114 Post Procedure Information Blood Pressure: 155/102 mmHg Rhythm: NSR Post procedural instructions were given Closure Device Time Device Success/Fail Site Checks Time Location Status Staff Sheath In? Note 12:28 AM Rt Groin No bleeding/hematoma Carlita Stock RT (R) Pulses Time Site Pre-Procedure Post-Procedure Note 01/02/2017 11:46:00 PM Bilateral DP \\T\\ PT 1+ 01/02/2017 11:46:00 PM Bilateral radial 2+ 12:27:00 AM Bilateral DP \\T\\ PT 1+ Updated by Sylvia Milligan RN on 01/06/2017 10:26:59 AM electronically signed on 01/06/2017 10:27:36 AM with status of Final
[2017-01-11 00:16] VITALS: BP 121/67
== END 2017-01-04 11:35 | disposition home or self-care (01) | DRG 247 ==
LOC: ICNU 22:26 → EMEROO 22:26 → ICNU 23:40
PROVIDERS: ADMIT Nurse Practitioner Family; ATTEND Internal Medicine Cardiovascular Disease